=== PATIENT | female | born 1945 | race Caucasian/White ===

== ENCOUNTER 2022-07-24 14:20 | Emergency (ER) | payer MEDICARE ==
[~2022-07-24] VITALS: Ht 162.6 cm; Wt 70.2 kg
[2022-07-24] MEDS ORDERED: ALPRAZOLAM0.25 MG PO (18:07)
[2022-07-24] MEDS ORDERED: ENALAPRIL MALEA20 MG PO (18:07)
[2022-07-24] MEDS ORDERED: LEXAPRO5 MG PO (18:08)
== END 2022-07-24 19:17 | disposition home or self-care (01) ==
LOC: ED 14:20
DX: I10 Essential (primary) hypertension (principal); R51.9 Headache, unspecified; Z88.5 Allergy status to narcotic agent; Z88.8 Allergy status to other drugs, medicaments and biological substances; Z79.899 Other long term (current) drug therapy
CPT/HCPCS: 36415; 80048; 85025; 99283

== ENCOUNTER 2023-11-22 11:57 | Emergency (ER) | payer MEDICARE, OTHER ==
[~2023-11-22] VITALS: Ht 162.6 cm; Wt 64.0 kg
[~2023-11-22 11:57] MED LIST: ALPRAZOLAM0.25 MG PO; ENALAPRIL MALEA20 MG PO; LEXAPRO5 MG PO
--- OUTSIDE RECORDS SUMMARY | 2023-11-22 12:01 | XMS ---
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 ETherese VISIT COUNT (12 MO.) 1 CONNIE Nassar TOTAL 1 NOTE: Visits indicate total known visits. ED/UCC VISIT TRACKING (12 MO.) 11/22/2023 11:[address] [facility] [place] TYPE: Emergency COMPLAINT: - ABD PAIN INPATIENT VISIT TRACKING (12 MO.) No inpatient visits to display in this time frame [id number]
[2023-11-22 12:38] LABS: HEMOGLOBIN 13.3 g/dL (12.0-18.0)
[2023-11-22 12:40] LABS: BASOPHILS 0.4 % (0-2); EOSINOPHILS 0.2 % (0-6); HEMATOCRIT 39.1 % (35.0-50.0); LYMPHOCYTES 20.5 % (24-44); MCV 85.4 fl (81-99); MONOCYTES 9.6 % (0-12); NEUTROPHILS 69.3 % (39-80); PLATELET COUNT 202 K/uL (140-440); RBC 4.58 M/ul (4.3-5.7); RDW 15.5 (10.5-15.0)
[2023-11-22] MEDS ORDERED: SODIUM CHLORIDE 0.9% 1,000 ML IV ONE (12:45)
[2023-11-22] MEDS ORDERED: AMLODIPINE BES2.5 MG PO (12:48)
[2023-11-22 12:51] LABS: ALBUMIN/GLOBULIN RATIO 0.88 (1.1-2.4); ANION GAP 12.9 (7-21); BILIRUBIN, TOTAL 0.7 ng/dL (0.2-1.0); CALCIUM 8.4 mg/dL (8.5-10.1); CREATININE, SERUM 0.7 mg/dL (0.55-1.02); POTASSIUM 3.9 mmol/L (3.5-5.1); PROTEIN, TOTAL 6.4 g/dL (6.4-8.2)
[2023-11-22 13:19] LABS: BILIRUBIN, URINE NEGATIVE (negative); BLOOD/HGB, URINE SMALL (Negative); KETONE, URINE NEGATIVE (Negative); LEUK ESTERASE, URINE NEGATIVE (negative); NITRITE, URINE NEGATIVE (negative)
[2023-11-22 13:22] LABS: BACTERIA, URINE RARE /hpf (negative); CASTS, URINE NONE SEEN \\lpf; COLLECTION TYPE, URINE CLEAN CATCH; CRYSTALS, URINE NONE SEEN (0-1+); REFLEX CULTURE, URINE No (No); WHITE BLOOD CELLS, URINE 0-1 /HPF (0-5)
[2023-11-22 13:38] LABS: LACTIC ACID, BLOOD 0.7 mmol/L (0.4-2.0)
[2023-11-22 14:15] VITALS: BP 124/86
== END 2023-11-22 14:18 | disposition home or self-care (01) ==
LOC: ED 11:57
PROVIDERS: Emergency Medicine
DX: R10.30 Lower abdominal pain, unspecified (principal); I10 Essential (primary) hypertension; Z88.0 Allergy status to penicillin; Z88.5 Allergy status to narcotic agent; Z88.8 Allergy status to other drugs, medicaments and biological substances; Z79.899 Other long term (current) drug therapy
CPT/HCPCS: 36415; 74177; 80053; 81001; 83605; 83690; 85025; 99284-25; J7030; Q9967